=== PATIENT | female | born 2000 | race Hispanic/Latino ===

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

== ENCOUNTER 2021-12-24 19:55 | Observation (INO) | payer MEDICAID ==
[~2021-12-24] VITALS: Ht 154.9 cm; Wt 99.8 kg
[2021-12-24] MEDS ORDERED: PREN1TAB80 PO (20:11)
[2021-12-24 20:12] VITALS: BP 125/65
[2021-12-24 20:32] LABS: APPEARANCE,URINE SL CLOUDY (CLEAR); BILIRUBIN,URINE SMALL (NEGATIVE); COLOR,URINE DARK YELLOW (YELLOW); GLUCOSE, URINE (UA) NEGATIVE (NEGATIVE); KETONES,URINE 15 mg/dL (NEGATIVE); LEUKOCYTE ESTERASE ,URINE SMALL (NEGATIVE); NITRATE,URINE POSITIVE (NEGATIVE); OCCULT BLOOD,URINE NEGATIVE (NEGATIVE); PH,URINE 6.5 (5.0-8.0); PROTEIN,URINE TRACE mg/dL (NEGATIVE)
[2021-12-24 20:36] LABS: AMPHET/METH SCREEN,URINE NEGATIVE (NEGATIVE); BARBITURATE SCREEN, URINE NEGATIVE (NEGATIVE); BENZODIAZEPINES SCREEN,URINE NEGATIVE (NEGATIVE); COCAINE SCREEN,URINE NEGATIVE (NEGATIVE)
[2021-12-24 20:37] LABS: CANNABINOID SCREEN,URINE NEGATIVE (NEGATIVE); PHENCYCLIDINE SCREEN,URINE NEGATIVE (NEGATIVE)
[2021-12-24 20:41] LABS: BACTERIA,URINE Few /HPF (None Seen)
[2021-12-24 20:42] LABS: MUCUS,URINE Many LPF (None Seen); SQUAMOUS EPITHELIAL CELL,UR Many /HPF (0-2)
[2021-12-24] MEDS ORDERED: LACTATED RINGERS 1000ML 1,000 ML IV SCH (21:00)
[2021-12-24] MEDS ORDERED: CEFTRIAXONE 1G VIAL ONE (21:19)
[2021-12-24] MEDS ORDERED: LACTATED RINGERS 1000ML IV PRN (21:30)
[2021-12-24] MEDS ORDERED: CEFTRIAXONE 1G VIAL IVP ONE (21:30)
== END 2021-12-24 22:00 | disposition home or self-care (01) ==
LOC: EDH 19:55 → LDH 19:56
PROVIDERS: ADMIT Obstetrics & Gynecology; ATTEND Obstetrics & Gynecology
DX: O26.893 Other specified pregnancy related conditions, third trimester (principal); R10.30 Lower abdominal pain, unspecified; O12.03 Gestational edema, third trimester; O62.9 Abnormality of forces of labor, unspecified; Z3A.36 36 weeks gestation of pregnancy; Z79.899 Other long term (current) drug therapy
CPT/HCPCS: 96374; 59025; 80305; 87088; 81001; G0378 ×2; G0379; J7120; J0696; 96360; 96372

== ENCOUNTER 2022-01-05 01:38 | Observation (INO) | payer MEDICAID ==
[~2022-01-05] VITALS: Ht 154.9 cm; Wt 101.2 kg
[~2022-01-05 01:38] MED LIST: PREN1TAB80 PO
[2022-01-05 01:39] VITALS: BP 137/79
[2022-01-05 02:25] LABS: APPEARANCE,URINE CLEAR (CLEAR); BILIRUBIN,URINE NEGATIVE (NEGATIVE); COLOR,URINE LIGHT-YELLOW (YELLOW); GLUCOSE, URINE (UA) NEGATIVE (NEGATIVE); KETONES,URINE NEGATIVE (NEGATIVE); LEUKOCYTE ESTERASE ,URINE 500 Leu/uL (NEGATIVE); NITRATE,URINE NEGATIVE (NEGATIVE); OCCULT BLOOD,URINE NEGATIVE (NEGATIVE); PH,URINE 6.5 (5.0-8.0); PROTEIN,URINE 10 mg/dL (NEGATIVE); UROBILINOGEN,URINE 0.2 mg/dL (0.2-1.0)
[2022-01-05 02:29] LABS: AMPHET/METH SCREEN,URINE NEGATIVE (NEGATIVE); BARBITURATE SCREEN, URINE NEGATIVE (NEGATIVE); BENZODIAZEPINES SCREEN,URINE NEGATIVE (NEGATIVE); CANNABINOID SCREEN,URINE NEGATIVE (NEGATIVE); COCAINE SCREEN,URINE NEGATIVE (NEGATIVE); PHENCYCLIDINE SCREEN,URINE NEGATIVE (NEGATIVE)
[2022-01-05 02:34] LABS: BACTERIA,URINE RARE /HPF (None Seen); MUCUS,URINE RARE LPF (None Seen); SQUAMOUS EPITHELIAL CELL,UR RARE /HPF (0-2)
== END 2022-01-05 03:50 | disposition home or self-care (01) ==
LOC: EDH 01:38 → LDH 01:39
PROVIDERS: ADMIT Obstetrics & Gynecology; ATTEND Obstetrics & Gynecology
DX: O62.9 Abnormality of forces of labor, unspecified (principal); O99.891 Other specified diseases and conditions complicating pregnancy; M54.50 Low back pain, unspecified; R10.9 Unspecified abdominal pain; Z3A.49 Greater than 42 weeks gestation of pregnancy; Z79.899 Other long term (current) drug therapy
CPT/HCPCS: 59025; 96360; 80305; 87088; 81001; G0378 ×2; G0379

== ENCOUNTER 2022-01-20 12:16 | Inpatient (IN) | payer MEDICAID ==
[~2022-01-20] VITALS: Ht 154.9 cm; Wt 100.7 kg
[2022-01-20] MEDS ORDERED: OXYTOCIN-LR 20 UNITS/1000 ML 1,000 ML IV SCH (14:00)
[2022-01-20 14:16] LABS: APPEARANCE,URINE SL CLOUDY (CLEAR); BILIRUBIN,URINE SMALL mg/dL (NEGATIVE); COLOR,URINE DARK YELLOW (YELLOW); GLUCOSE, URINE (UA) NEGATIVE (NEGATIVE); KETONES,URINE 15 mg/dL (NEGATIVE); LEUKOCYTE ESTERASE ,URINE SMALL Leu/uL (NEGATIVE); NITRATE,URINE NEGATIVE (NEGATIVE); OCCULT BLOOD,URINE NEGATIVE (NEGATIVE); PROTEIN,URINE 30 mg/dL (NEGATIVE)
[2022-01-20 14:32] LABS: HEMATOCRIT 29.2 % (36-48); MEAN CORPUSCULAR HEMOGLOBIN 25.6 pg (27.0-33.0); MEAN CORPUSCULAR HGB CONC 31.5 g/dL (32.0-36.0); MEAN CORPUSCULAR VOLUME 81.3 fL (79-99); PLATELET COUNT (AUTO) 174 K/uL (130-400); RED BLOOD CELL COUNT(AUTO) 3.59 MIL/uL (4.00-5.50); RED CELL DISTRIBUTION WIDTH 15.5 % (11.0-15.5)
[2022-01-20 14:48] LABS: BACTERIA,URINE Few /HPF (None Seen); RBC,URINE None Seen /HPF (0-1)
[2022-01-21 10:04] LABS: RAPID PLASMA REAGIN NONREACTIVE (NONREACTIVE)
[2022-01-21] MEDS ORDERED: DINOPROSTONE 10 MG VAGINAL SUPP VG SCH (14:00)
[2022-01-21] MEDS ORDERED: BUTORPHANOL TARTRATE 2 MG/ML IVP ONE (20:30)
[2022-01-22] MEDS ORDERED: BUTORPHANOL TARTRATE 2 MG/ML IVP ONE (06:00)
[2022-01-22] MEDS ORDERED: OXYTOCIN-LR 20 UNITS/1000 ML 1,000 ML IV SCH (06:00)
[2022-01-22] MEDS: LACTATED RINGERS 1000ML 1,000 ML IV PRN ×2 (08:21→11:56)
[2022-01-22] MEDS ORDERED: NALOXONE HCL 0.4 MG/1 ML ML IV PRN (11:00)
[2022-01-22] MEDS ORDERED: LACTATED RINGERS 500 ML 500 ML IV PRN (11:00)
[2022-01-22] MEDS ORDERED: EPHEDRINE SULFATE 50 MG/ML AMPULE IVP PRN ×2 (11:00→19:30)
[2022-01-22] MEDS ORDERED: ROPIVACAINE 0.2% 100ML VIAL 100 ML EP SCH (11:00)
[2022-01-22] MEDS ORDERED: CEFAZOLIN SODIUM 1 GM VIAL IVP PRN (14:00)
[2022-01-22] MEDS ORDERED: KETAMINE 50MG/ML SYRINGE 50 MG/ML DISP.SYRIN IV ONE (15:29)
[2022-01-22] MEDS ORDERED: PROPOFOL 10 MG/ML 20ML VIAL IV ONE (17:50)
[2022-01-22] MEDS ORDERED: FENTANYL CITRATE PF 50 MCG/1 ML 2ML VIAL ONE (17:52)
[2022-01-22] MEDS ORDERED: MIDAZOLAM HCL 1 MG/ML 2ML VIAL ONE (18:02)
[2022-01-22] MEDS ORDERED: METHYLERGONOVINE MALEATE 0.2 MG/1 ML ML ONE (18:06)
[2022-01-22] MEDS ORDERED: MORPHINE PF 100MG/10ML AMP IV ONE (18:22)
[2022-01-22] MEDS ORDERED: MISOPROSTOL 200 MCG TABLET ONE (18:27)
[2022-01-22] MEDS ORDERED: MISOPROSTOL 200 MCG TABLET PR SCH (18:30)
[2022-01-22] MEDS ORDERED: OXYTOCIN-LR 20 UNITS/1000 ML 1,000 ML IV PRN (19:00)
[2022-01-22] MEDS ORDERED: MEPERIDINE-PF 75 MG/ML SYG IM PRN (19:00)
[2022-01-22] MEDS ORDERED: NALOXONE HCL 0.4 MG/1 ML ML IVP PRN ×3 (19:00→19:30)
[2022-01-22] MEDS ORDERED: 0.9%NACL 10ML VIAL IVP PRN (19:00)
[2022-01-22] MEDS ORDERED: PROMETHAZINE HCL 25 MG/ML 1ML AMPULE IM PRN (19:00)
[2022-01-22] MEDS ORDERED: ONDANSETRON 4MG INJ IVP PRN (19:30)
[2022-01-22] MEDS ORDERED: DiphenhydrAMINE HCL 50 MG/ML VIAL IVP PRN (19:30)
[2022-01-22 20:48] LABS: HEMATOCRIT 24.1 % (36-48); MEAN CORPUSCULAR HEMOGLOBIN 25.5 pg (27.0-33.0); MEAN CORPUSCULAR HGB CONC 31.5 g/dL (32.0-36.0); MEAN CORPUSCULAR VOLUME 80.9 fL (79-99); PLATELET COUNT (AUTO) 172 K/uL (130-400); RED BLOOD CELL COUNT(AUTO) 2.98 MIL/uL (4.00-5.50); RED CELL DISTRIBUTION WIDTH 15.4 % (11.0-15.5); WHITE BLOOD COUNT (AUTO) 17.6 K/uL (4.8-10.8)
[2022-01-22 22:00] VITALS: BP 117/72
[2022-01-22 23:30] VITALS: BP 124/70
[2022-01-23] MEDS: DEXTROSE 5 %-0.45 % NACL 1,000 ML IV PRN ×2 (01:58→16:38)
[2022-01-23 03:30] VITALS: BP 120/67
[2022-01-23 05:57] LABS: MEAN CORPUSCULAR HEMOGLOBIN 25.5 pg (27.0-33.0); MEAN CORPUSCULAR HGB CONC 31.4 g/dL (32.0-36.0); MEAN CORPUSCULAR VOLUME 81.3 fL (79-99); RED BLOOD CELL COUNT(AUTO) 2.51 MIL/uL (4.00-5.50); RED CELL DISTRIBUTION WIDTH 15.6 % (11.0-15.5); WHITE BLOOD COUNT (AUTO) 13.5 K/uL (4.8-10.8)
[2022-01-23 06:03] LABS: HEMATOCRIT 20.4 % (36-48)
[2022-01-23] MEDS ORDERED: IBUPROFEN 600 MG TABLET PO PRN (07:00)
[2022-01-23] MEDS ORDERED: BISACODYL 10 MG SUPP.RECT RC PRN (07:00)
[2022-01-23] MEDS ORDERED: ACETAMINOPHEN WITH CODEINE 1 TAB TAB PO PRN (07:00)
[2022-01-23] MEDS ORDERED: LANOLIN 30GM OINTMENT TP PRN (07:00)
[2022-01-23] MEDS ORDERED: ACETAMINOPHEN 500 MG TABLET PO PRN (07:00)
[2022-01-23 07:27] VITALS: BP 113/67
[2022-01-23] MEDS ORDERED: MEASLES/MUMPS/RUBELLA VACCINE, LIVE 0.5 ML/VIAL SQ ONE (08:00)
[2022-01-23] MEDS: SIMETHICONE 80 MG TAB.CHEW PO PRN ×2 (10:01→21:55)
[2022-01-23] MEDS: DOCUSATE SODIUM 100 MG CAP PO SCH ×2 (10:01→21:56)
[2022-01-23] MEDS: HYDROCODONE/ACETAMINOPHEN 5/325 MG TAB PO PRN ×2 (10:02→18:33)
[2022-01-23 11:51] VITALS: BP 119/63
[2022-01-23 12:35] LABS: HEMATOCRIT 24.6 % (36-48)
[2022-01-23 16:25] VITALS: BP 129/67
[2022-01-23 19:19] VITALS: BP 115/69
[2022-01-23 22:47] VITALS: BP 112/63
[2022-01-24 02:43] VITALS: BP 122/68
[2022-01-24] MEDS: HYDROCODONE/ACETAMINOPHEN 5/325 MG TAB PO PRN (06:46)
[2022-01-24 07:23] VITALS: BP 118/67
[2022-01-24] MEDS: SIMETHICONE 80 MG TAB.CHEW PO PRN (08:55)
[2022-01-24] MEDS: DOCUSATE SODIUM 100 MG CAP PO SCH (08:56)
[2022-01-24 12:08] VITALS: BP 121/66
== END 2022-01-24 14:15 | disposition home or self-care (01) | DRG 540 ==
LOC: EDH 12:16 → LDH 12:58 → OBSVTOIN 12:58 → WSH 01-22 21:50
PROVIDERS: ADMIT Obstetrics & Gynecology; ATTEND Obstetrics & Gynecology
PROC: 10D00Z1 Extraction of Products of Conception, Low, Open Approach (ICD-10-PCS; principal; 2022-01-22 17:30)
PROC: 30233N1 Transfusion of Nonautologous Red Blood Cells into Peripheral Vein, Percutaneous Approach (ICD-10-PCS; 2022-01-23)
DX: O62.2 Other uterine inertia (principal); O61.9 Failed induction of labor, unspecified; O69.81X0 Labor and delivery complicated by cord around neck, without compression, not applicable or unspecified; Z3A.40 40 weeks gestation of pregnancy; Z37.0 Single live birth
CPT/HCPCS: 36415; 59510; 76819; 81001; 85014; 85018; 85027; 86592; 86701; 86850; 86900; 86901; 86923; 87088; 87390; A4314; A4344; G0378; J0595; J0690; J2175; J2210; J2250; J2274; J2550; J2590; J2704; J2795; J3010; J7120; P9016

== ENCOUNTER 2022-11-29 16:32 | Observation (INO) | payer MEDICAID ==
[~2022-11-29] VITALS: Ht 157.5 cm; Wt 95.7 kg
[2022-11-29 16:39] VITALS: BP 128/65; PULSE 100; RESP 16; O2SAT 100
[2022-11-29 17:20] LABS: APPEARANCE,URINE CLEAR (CLEAR); BILIRUBIN,URINE NEGATIVE (NEGATIVE); COLOR,URINE YELLOW (YELLOW); GLUCOSE, URINE (UA) NEGATIVE (NEGATIVE); KETONES,URINE NEGATIVE (NEGATIVE); LEUKOCYTE ESTERASE ,URINE 250 Leu/uL (NEGATIVE); NITRATE,URINE NEGATIVE (NEGATIVE); OCCULT BLOOD,URINE NEGATIVE (NEGATIVE); PROTEIN,URINE 20 mg/dL (NEGATIVE)
[2022-11-29 17:36] LABS: ADD UA MICROSCOPIC YES
[2022-11-29 17:38] LABS: BACTERIA,URINE MOD /HPF (None Seen); MUCUS,URINE MOD LPF (None Seen); SQUAMOUS EPITHELIAL CELL,UR MOD /HPF (0-2)
== END 2022-11-29 18:00 | disposition home or self-care (01) ==
LOC: EDH 16:32 → LDH 16:33
PROVIDERS: ADMIT Obstetrics & Gynecology; ATTEND Obstetrics & Gynecology
DX: O26.893 Other specified pregnancy related conditions, third trimester (principal); R10.30 Lower abdominal pain, unspecified; Z3A.34 34 weeks gestation of pregnancy
CPT/HCPCS: 87088; 81001; G0379; G0378

== ENCOUNTER 2023-05-03 00:45 | Emergency (ER) | payer MEDICAID, OTHER ==
[~2023-05-03] VITALS: Ht 157.5 cm; Wt 86.2 kg
[~2023-05-03 00:45] MED LIST changes: +ACET-2079 PO; +FERR-72 PO
[2023-05-03 01:15] LABS: RAPID GROUP A STREP negative (NEGATIVE)
[2023-05-03 01:17] LABS: SARS-CoV-2, RNA, NAAT NEGATIVE SARS CoV-2 (NEGATIVE)
[2023-05-03 01:18] LABS: APPEARANCE,URINE CLEAR (CLEAR); BILIRUBIN,URINE NEGATIVE (NEGATIVE); COLOR,URINE YELLOW (YELLOW); GLUCOSE, URINE (UA) NEGATIVE (NEGATIVE); KETONES,URINE NEGATIVE (NEGATIVE); LEUKOCYTE ESTERASE ,URINE NEGATIVE Leu/uL (NEGATIVE); NITRATE,URINE NEGATIVE (NEGATIVE); OCCULT BLOOD,URINE NEGATIVE (NEGATIVE); PH,URINE 5.5 (5.0-8.0); PROTEIN,URINE 30 mg/dL (NEGATIVE)
[2023-05-03 01:19] LABS: INFLUENZA TYPE A Negative For Type A (NEGATIVE); INFLUENZA TYPE B Negative For Type B (NEGATIVE)
[2023-05-03 01:26] LABS: HCG,QUALITATIVE URINE NEGATIVE (NEGATIVE)
[2023-05-03 01:31] LABS: ADD UA MICROSCOPIC YES
[2023-05-03 01:33] LABS: MUCUS,URINE MANY LPF (None Seen); SQUAMOUS EPITHELIAL CELL,UR FEW /HPF (0-2)
[2023-05-03 02:22] VITALS: TEMP 99.7
[2023-05-03 02:24] VITALS: BP 146/81; PULSE 109; RESP 16; O2SAT 100
[2023-05-03] MEDS ORDERED: ACETAMINOPHEN 500 MG TABLET PO ONE (02:30)
[2023-05-03] MEDS ORDERED: ONDANSETRON ODT 4MG TAB SL ONE (02:30)
[2023-05-03] MEDS ORDERED: METOCLOPRAMIDE 10 MG TABLET PO ONE (04:00)
[2023-05-03] MEDS ORDERED: HYDROXYZINE 25 MG TABLET PO ONE (04:00)
[2023-05-03] MEDS ORDERED: HYDR50CA50 PO (04:02)
== END 2023-05-03 04:13 | disposition home or self-care (01) ==
LOC: EDH 00:45
DX: F41.9 Anxiety disorder, unspecified (principal); R51.9 Headache, unspecified; Z20.822 Contact with and (suspected) exposure to COVID-19; Z79.899 Other long term (current) drug therapy; Z98.890 Other specified postprocedural states
CPT/HCPCS: 71045; 81001; 81025; 87635; 87804; 87880